=== PATIENT | female | born 1975 | race African-American/Black ===

== ENCOUNTER 2016-05-13 16:04 | Emergency (ER) | payer OTHER ==
[2016-05-13 16:11] VITALS: BMI 34.0
[2016-05-13 17:56] LABS: EOSINOPHIL 2.2 % (0-4.5); MCH 27.5 pg (25.7-33.7); MCHC 33.4 g/dl (32.0-36.0); MEAN CELL VOLUME 82.4 fl (80-96); MEAN PLT VOLUME 8.2 fl (7.5-11.1); NEUTROPHILS 58.8 % (42.8-82.8); PLATELET COUNT 286 K/MM3 (134-434); RDW 15.7 % (11.6-15.6); WHITE BLOOD COUNT 8.3 K/mm3 (4.0-10.0)
[2016-05-13 17:59] LABS: URINE APPEARANCE CLEAR; URINE BILIRUBIN NEGATIVE (NEGATIVE); URINE COLOR STRAW; URINE GLUCOSE (UA) NEGATIVE (NEGATIVE); URINE KETONE NEGATIVE (NEGATIVE); URINE LEUK ESTERASE NEGATIVE (NEGATIVE); URINE NITRITE NEGATIVE (NEGATIVE); URINE PROTEIN NEGATIVE (NEGATIVE); URINE UROBILINOGEN NEGATIVE E.U./dl (0.2-1.0)
[2016-05-13 18:55] LABS: URINE BLOOD 2+ (NEGATIVE)
[2016-05-13 19:32] VITALS: PULSE 83
--- NOTE | 2016-05-13 19:49 | PDOC ---
History of Present Illness - General History Source: Patient Exam Limitations: No Limitations - History of Present Illness Initial Comments: 05/13/16 20:20 The patient is a 41 year old female (; currently approximately 6 weeks ), with no significant past medical history, who presents to the emergency department with increased vaginal bleeding since yesterday. The patient additionally reports lower abdominal cramping and lower back pain. The patient reports that she took a home test a couple weeks ago, which was positive. She then made an appointment with Dr. Mancilla. Yesterday, the patient reports that she was seen by Dr. Mancilla in office, where her was confirmed. Overnight and throughout the day today, the patient reports increased vaginal bleeding in addition to worsening lower abdominal pain and back pain. The patient denies fever, chills, nausea or vomiting LMP: 2016. The patient does report a previous intrauterine demise at 40 weeks in her third . The patient's primary language is [place]araguan. Allergies: None reported. Past Surgical History: None reported. Social History: Non smoker. Denies alcohol or drug use. PAYING TELLER: Dr. Mancilla <Jessica Bland - Last Filed: 05/13/16 21:34> <Burt Phelan - Last Filed: 05/13/16 21:51> - General Chief Complaint: Vaginal Bleeding Stated Complaint: VAGINAL BLEED Time Seen by Provider: 05/13/16 16:48 Past History <Jessica Bland - Last Filed: 05/13/16 21:34> - Past Medical History Anemia: Yes Asthma: No Cancer: No Cardiac Disorders: No CVA: No COPD: No CHF: No Dementia: No Diabetes: No GI Disorders: No Disorders: No HTN: Yes Hypercholesterolemia: No Liver Disease: No Seizures: No Thyroid Disease: No - Surgical History Abdominal Surgery: No Appendectomy: No Cardiac Surgery: No Cholecystectomy: No Lung Surgery: No Neurologic Surgery: No Orthopedic Surgery: No - Reproductive History Is Patient Now?: Yes (#): 3 Para: 4 - Psycho/Social/Smoking Cessation Hx Suicidal Ideation: No Smoking History: Never smoked Have you smoked in the past 12 months: No Hx Alcohol Use: No Drug/Substance Use Hx: No Substance Use Type: None Hx Substance Use Treatment: No <Burt Phelan - Last Filed: 05/13/16 21:51> - Past Medical History Allergies/Adverse Reactions: Allergies Allergy/AdvReac Type Severity Reaction Status Date / Time No Known Allergies Allergy Verified 05/13/16 16:12 Home Medications: Ambulatory Orders Lisinopril [Prinivil -] 40 mg PO DAILY 05/13/16 Review of Systems - Review of Systems Able to Perform ROS?: Yes Comments:: 05/13/16 20:01 CONSTITUTIONAL: No fever, no chills, no fatigue EYES: No visual changes ENT: No ear pain, no sore throat CARDIOVASCULAR: No chest pain, no palpitations RESPIRATORY: No cough, no SOB GI: +Abdominal cramping. No nausea, no vomiting, no constipation, no diarrhea GENITOURINARY: +Vaginal bleeding. No dysuria, no frequency, no hematuria MUSCULOSKELETAL: +Back pain. No joint pain, no myalgias SKIN: No rash NEURO: No headache <YorkJessica Lozada - Last Filed: 05/13/16 21:34> *Physical Exam - Vital Signs Last Vital Signs Temp Pulse Resp BP Pulse Ox 98.6 F 83 19 137/97 100 05/13/16 19:32 05/13/16 19:32 05/13/16 19:32 05/13/16 19:32 05/13/16 19:32 - Physical Exam Comments: 05/13/16 19:52 CONSTITUTIONAL: Well-appearing; well-nourished; in no apparent distress. HEAD: Normocephalic; atraumatic. EYES: PERRL; EOM intact. ENMT: External appears normal; normal oropharynx. NECK: Supple; non-tender; no cervical lymphadenopathy. CARD: Normal S1, S2; no murmurs, rubs, or gallops. RESP: Normal chest excursion with respiration; breath sounds clear and equal bilaterally; no wheezes, rhonchi, or rales. ABD: Soft, non-distended; non-tender; no palpable organomegaly, no palpable hernias. EXT: Normal ROM in all four extremities; non-tender to palpation; distal pulses intact. SKIN: Warm, dry, no rash. NEURO: No focal neurological deficiencies. PELVIC EXAM: No external lesions. Small amount of fresh and coagulated blood in the vaginal vault. Cervical os is closed. <York,Jessica - Last Filed: 05/13/16 21:34> - Vital Signs Last Vital Signs Temp Pulse Resp BP Pulse Ox 98.6 F 83 19 137/97 100 05/13/16 19:32 05/13/16 19:32 05/13/16 19:32 05/13/16 19:32 05/13/16 19:32 <Burt Phelan - Last Filed: 05/13/16 21:51> ED Treatment Course - LABORATORY CBC & Chemistry Diagram: 05/13/16 16:49 - ADDITIONAL ORDERS Additional order review: Laboratory Results 05/13/16 05/13/16 17:25 16:49 Beta HCG, Quant 55.7 Urine Color Straw Urine Appearance Clear Urine pH 6.0 Ur Specific [place] 1.013 Urine Protein Negative Urine Glucose (UA) Negative Urine Ketones Negative Urine Blood 2+ H Urine Nitrite Negative Urine Bilirubin Negative Urine Urobilinogen Negative Ur Leukocyte Esterase Negative 05/13/16 16:49 RBC 5.07 MCV 82.4 MCHC 33.4 RDW 15.7 H D MPV 8.2 D Neutrophils % 58.8 D Lymphocytes % 27.4 D Monocytes % 10.6 H Eosinophils % 2.2 Basophils % 1.0 <Jessica Bland - Last Filed: 05/13/16 21:34> - LABORATORY CBC & Chemistry Diagram: 05/13/16 16:49 - ADDITIONAL ORDERS Additional order review: Laboratory Results 05/13/16 05/13/16 17:25 16:49 Beta HCG, Quant 55.7 Urine Color Straw Urine Appearance Clear Urine pH 6.0 Ur Specific [place] 1.013 Urine Protein Negative Urine Glucose (UA) Negative Urine Ketones Negative Urine Blood 2+ H Urine Nitrite Negative Urine Bilirubin Negative Urine Urobilinogen Negative Ur Leukocyte Esterase Negative 05/13/16 16:49 RBC 5.07 MCV 82.4 MCHC 33.4 RDW 15.7 H D MPV 8.2 D Neutrophils % 58.8 D Lymphocytes % 27.4 D Monocytes % 10.6 H Eosinophils % 2.2 Basophils % 1.0 - RADIOLOGY Radiology Studies Ordered: Category Date Time Status TRANSVAGINAL US PREG [US] Stat Ultrasound 05/13/16 19:13 Ordered <Burt Phelan - Last Filed: 05/13/16 21:51> Medical Decision Making - Medical Decision Making 05/13/16 21:06 EXAM: US/TRANSVAGINAL US PREG Reviewed By: Dr. Asya Hurd IMPRESSION: No intrauterine gestational sac is identified. Left ovary appears unremarkable with a trace of free fluid in the left adnexa. Right ovary was not visualized. Correlate clinically to determine further evaluation and follow-up in view of the clinical history, rule out ectopic . Call placed to Dr. Warren at 21:20. Referred to answering service, awaiting callback. Dr. Warren returned call at 21:35, case discussed. <Jessica Bland - Last Filed: 05/13/16 21:34> - Medical Decision Making 05/13/16 21:27 Patient is a 41-year-old female, 4 para 2, LMP of March 252016, presents with vaginal bleeding for one day after a positive home test. In the ER, patient is awake and alert, hemodynamically stable. Vaginal exam reveals small amount of active bleeding and coagulable blood in the vaginal vault with a closed cervical os. Beta hCG is noted to be 55. Transvaginal ultrasound reveals no evidence of IUP, small amount of fluid is noted within the left adnexa. Patient is Rh+. Differential diagnoses includes early IUP versus threatened AB versus ectopic . Will discuss with OB/ ACTIVITY DIRECTOR. Will discharge with strict ectopic precautions. 05/13/16 21:49 I discussed the case with Dr. Warren of [facility]. He agrees with the plan of care. Will just charge. <Burt Phelan - Last Filed: 05/13/16 21:51> *DC/Admit/Observation/Transfer - Attestations Scribe Attestion: 05/13/16 19:51 Documentation prepared by Jessica Bland, acting as medical editor for Burt Phelan MD. <Jsesica Bland - Last Filed: 05/13/16 21:34> - Attestations Physician Attestion: 05/13/16 21:27 The documentation was prepared by the scribe under my direct supervision. I have reviewed the documentation which correctly represents the findings, medical decision-making and critical action taken by me. <Perry Phelanis - Last Filed: 05/13/16 21:51> Diagnosis at time of Disposition: Antepartum hemorrhage Qualifiers: Trimester: first trimester Qualified Code(s): O46.91 - Antepartum hemorrhage, unspecified, first trimester - Discharge Dispostion Disposition: HOME Condition at time of disposition: Stable - Referrals Referrals: Mitch Garcia MD [Primary Care Provider] - Nic Mancilla MD [Staff Physician] - - Patient Instructions Printed Discharge Instructions: DI for Threatened Additional Instructions: Follow up with Dr. Mancilla in 12 hours. Return immediately to the ER for worsening bleeding, severe pain. - Post Discharge Activity Work/School Note: Back to Work
[2016-05-13 20:03] LABS: URINE MUCUS RARE; URINE RBC 12 /hpf (0-3); URINE WBC 11 /hpf (3-5)
[2016-05-13 22:14] VITALS: BP 134/93; TEMP 98.5
== END 2016-05-13 22:15 | disposition home or self-care (01) ==
LOC: JER 16:04
DX: O46.91 Antepartum hemorrhage, unspecified, first trimester (principal); Z3A.01 Less than 8 weeks gestation of pregnancy
CPT/HCPCS: 36415; 76817-TC; 81003; 81015; 84702; 85025; 86850; 86900; 86901; 87086; 99284-25

== ENCOUNTER 2018-03-11 12:01 | Emergency (ER) | payer OTHER ==
[2018-03-11 12:08] VITALS: BP 146/90; PULSE 79; TEMP 98.3; BMI 26.4
--- NOTE | 2018-03-11 12:32 | PDOC ---
History of Present Illness - General Chief Complaint: Headache Stated Complaint: HEADACHE Time Seen by Provider: 03/11/18 12:12 History Source: Patient Exam Limitations: Language Barrier Past History - Past Medical History Allergies/Adverse Reactions: Allergies Allergy/AdvReac Type Severity Reaction Status Date / Time No Known Allergies Allergy Verified 03/11/18 12:05 Home Medications: Ambulatory Orders Lisinopril [Prinivil -] 40 mg PO DAILY 05/13/16 Anemia: Yes Asthma: No Cancer: No Cardiac Disorders: No CVA: No COPD: No CHF: No Dementia: No Diabetes: No GI Disorders: No Disorders: No HTN: Yes Hypercholesterolemia: No Liver Disease: No Seizures: No Thyroid Disease: No - Surgical History Abdominal Surgery: No Appendectomy: No Cardiac Surgery: No Cholecystectomy: No Lung Surgery: No Neurologic Surgery: No Orthopedic Surgery: No - Reproductive History (#): 3 Para: 4 - Suicide/Smoking/Psychosocial Hx Smoking History: Never smoked Have you smoked in the past 12 months: No Hx Alcohol Use: No Drug/Substance Use Hx: No Substance Use Type: None Hx Substance Use Treatment: No *Physical Exam - Vital Signs Last Vital Signs Temp Pulse Resp BP Pulse Ox 98.3 F 79 16 146/90 98 03/11/18 12:06 03/11/18 12:06 03/11/18 12:06 03/11/18 12:06 03/11/18 12:06 - Physical Exam General Appearance: No: Apparent Distress HEENT: positive: DANIEL Neck: positive: Supple Respiratory/Chest: positive: Lungs Clear, Normal Breath Sounds. negative: Respiratory Distress Cardiovascular: positive: Regular Rhythm, Regular Rate, S1, S2. negative: Murmur Gastrointestinal/Abdominal: positive: Normal Bowel Sounds, Soft. 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 Took Tylenol yesterday with relief of HESTER, but when she took it today , it did not help. Mentions slight nausea and minimal lightheadedness. Does not usually get HAs. HESTER not worsened by anything. States this AM, her headache got better after taking her BP medication. Is uncertain what her BP was in AM as does not have machine to check her BP. Currently, rates HESTER as 04/16. Denies fever , sob, cp, abd pain, n/v, numbness/tingling/weakness of extremities, visual or gait changes PE unremarkable; no focal deficits HESTER could have been due to elevated BP in AM, but not markedly elevated here Advised BP monitoring Stable for dc 03/11/18 12:28 *DC/Admit/Observation/Transfer Diagnosis at time of Disposition: Headache Qualifiers: Headache type: unspecified Headache chronicity pattern: acute headache Intractability: not intractable Qualified Code(s): R51 - Headache - Discharge Dispostion Disposition: HOME Condition at time of disposition: Stable Decision to Admit order: No - Referrals - Patient Instructions Printed Discharge Instructions: DI for Headache, Essential Hypertension Additional Instructions: Thank you for choosing [facility]. It was a pleasure taking care of you. Be sure to monitor your blood pressure daily (in morning and evening) Take your blood pressure medications as prescribed Follow-up with your primary care doctor in 2-3 days. Return to the Emergency Department if your symptoms worsen or persist, you have fever, shortness of breath, chest pain, severe abdominal pain, vomiting, dizziness, weakness of extremities (arms and/or legs), changes in vision or walking or other concerning symptoms. Apolonia por elegir el [facility]. Fue un placer cuidar de ti. Asegrese de controlar rogers presin arterial diariamente (por la maana y por la noche) [place] kaylee medicamentos para la presin arterial segn lo prescrito Fay un seguimiento con rogers mdico de atencin primaria en 2-3 gillette. Regrese al Departamento de Emergencias si kaylee sntomas empeoran o persisten, tiene fiebre, falta de aliento, dolor en el pecho, dolor abdominal intenso, vmitos, mareos, debilidad en las extremidades (brazos y / o piernas), cambios en la visin o al caminar u otros relacionados los sntomas. Print Language: GABONESE - Post Discharge Activity
== END 2018-03-11 12:37 | disposition home or self-care (01) ==
LOC: JERFT 12:01
DX: R51 Headache (principal); I10 Essential (primary) hypertension
CPT/HCPCS: 99281-25

== ENCOUNTER 2019-03-21 09:22 | Day surgery (SDC) | payer OTHER ==
[2019-03-20 16:48] VITALS: BMI 34.7
[2019-03-21] MEDS ORDERED: PROPOFOL 20 ML ONE ×2 (10:25)
[2019-03-21 11:12] VITALS: TEMP 98
[2019-03-21 11:39] VITALS: BP 110/74; PULSE 75
== END 2019-03-21 11:25 | disposition home or self-care (01) ==
LOC: FASU-ENDO 09:22
PROVIDERS: ATTEND Internal Medicine Gastroenterology
PROC: 0DJD8ZZ Inspection of Lower Intestinal Tract, Via Natural or Artificial Opening Endoscopic (ICD-10-PCS; principal; 2019-03-21 10:26)
DX: Z86.010 Personal history of colon polyps (principal); K64.1 Second degree hemorrhoids
CPT/HCPCS: 84703

== ENCOUNTER 2021-01-04 12:55 | Emergency (ER) | payer OTHER ==
[2021-01-04 13:05] VITALS: BP 152/80; PULSE 80; TEMP 97; BMI 35.5
[2021-01-04] MEDS ORDERED: ACETAMINOPHEN 325 MG TABLET (FP) PO ONE (14:38)
[2021-01-04] MEDS ORDERED: predniSONE 20 MG TABLET (UD) PO ONE (15:01)
[2021-01-04 15:11] LABS: BASO % 0.7 % (0-2.0); EOS % 2.2 % (0-4.5); HEMATOCRIT 34.7 % (32.4-45.2); HEMOGLOBIN 11.2 GM/dL (10.7-15.3); LYMPH % 31.6 % (8-40); MCH 22.7 pg (25.7-33.7); MCHC 32.4 g/dl (32.0-36.0); MEAN PLT VOLUME 7.2 fl (7.5-11.1); MONO % 7.9 % (3.8-10.2); NEUT % 57.6 % (42.8-82.8); PLATELET COUNT 322 10^3/uL (134-434); RBC 4.96 M/mm3 (3.60-5.2); RDW 17.6 % (11.6-15.6); WHITE BLOOD COUNT 5.9 K/mm3 (4.0-10.0)
[2021-01-04 15:22] LABS: INR 1.12 (0.83-1.09); PROTHROMBIN TIME (PATIENT) 13.1 SEC (9.7-13.0)
[2021-01-04] MEDS ORDERED: predniSONE 20 MG TABLET (UD) ONE (15:23)
[2021-01-04] MEDS ORDERED: ACETAMINOPHEN 325 MG TABLET (FP) ONE (15:23)
[2021-01-04 15:25] LABS: ACTIVATED PTT 30.2 SECONDS (25.2-36.5)
[2021-01-04 15:34] LABS: CHLORIDE 108 mmol/L (98-107); SODIUM 138 mmol/L (136-145)
[2021-01-04 15:39] LABS: ALBUMIN 3.1 g/dl (3.4-5.0); BLOOD UREA NITROGEN 13.3 mg/dL (7-18); CALCIUM 9.3 mg/dL (8.5-10.1); CO2 23 mmol/L (21-32); GLUCOSE,RANDOM 86 mg/dL (74-106)
[2021-01-04 15:40] LABS: MAGNESIUM 2.3 mg/dL (1.8-2.4)
[2021-01-04 15:42] LABS: CREATININE 0.9 mg/dL (0.55-1.3); SGOT/AST 65 U/L (15-37); SGPT/ALT 26 U/L (13-61)
[2021-01-04 15:43] LABS: BILIRUBIN,TOTAL 0.8 mg/dL (0.2-1); CHOLESTEROL 148 mg/dL (50-200); LDL CHOLESTEROL (ONLY SJRH) 93 mg/dL (5-100); TRIGLYCERIDES 73 mg/dL (0-150)
[2021-01-04 15:44] LABS: TOT PROT 8.1 g/dl (6.4-8.2)
[2021-01-04 15:45] LABS: ALK PHOS 93 U/L (45-117)
[2021-01-04 15:46] LABS: HDL CHOLESTEROL 37 mg/dL (40-60)
[2021-01-04 15:49] LABS: ANION GAP 7 MMOL/L (8-16)
[2021-01-04 18:12] LABS: CALCIUM 9.2 mg/dL (8.5-10.1)
[2021-01-04 18:13] LABS: BLOOD UREA NITROGEN 12.5 mg/dL (7-18)
[2021-01-04 18:16] LABS: CREATININE 0.8 mg/dL (0.55-1.3)
== END 2021-01-04 18:18 | disposition home or self-care (01) ==
LOC: JER 12:55
DX: G51.0 Bell's palsy (principal)
CPT/HCPCS: 36415; 70450-TC; 71045-TC-FY; 80048; 80053; 80061; 82550; 82553; 83735; 84484; 84703; 85025; 85610; 85730; 86618; 93005; 93010; 99284-25; C9803; U0003; U0005